=== PATIENT | female | born 1965 | race Caucasian/White ===

== ENCOUNTER → 2022-10-04 | Outpatient (CLI) | payer OTHER ==
[~2022-10-04] MED LIST: ALBU90OI61 INH; AMLO10 PO; AMOX875 PO; BUME1 PO; CITA20 PO; CLON1 PO; DULO30 PO; ELET40TA PO; HYDACE5 PO; HYDMOR4 PO; IBUP800 PO; LORA1 PO; NAPR500 PO; POTCHL20ER PO; PROM25 PO; PROP60 PO; SULTRIDS PO
== END ==
LOC: LAB 15:18 → LAB SHORT 15:18
DX: L03.116 Cellulitis of left lower limb (principal)
CPT/HCPCS: 87070; 87075; 87077; 87186; 87205

== ENCOUNTER 2023-02-28 09:45 | Day surgery (SDC) | payer OTHER ==
[~2023-02-28] VITALS: Ht 154.9 cm; Wt 144.0 kg
[~2023-02-28 09:45] MED LIST changes: +FURO40 PO; +METO25ER PO; +TIZA4 PO
[2023-02-28 10:04] VITALS: BP 183/103
[2023-02-28 12:35] VITALS: BP 177/75
[2023-02-28 12:45] VITALS: BP 151/124
--- NOTE | 2023-02-28 12:47 | NUR ---
pt to recovery from lab. pt sitting up in recliner. pt [id number]. site soft and non-tender per pt. no signs on bleeding noted. pt eating lunch now and given coffee per request.
[2023-02-28 13:00] VITALS: BP 154/70
[2023-02-28 13:15] VITALS: BP 156/71
[2023-02-28 13:30] VITALS: BP 142/66
--- NOTE | 2023-02-28 13:30 | NUR ---
ice pack placed on l chest/shoulder per dr orders.
--- NOTE | 2023-02-28 13:31 | NUR ---
pt finished eating lunch.
--- NOTE | 2023-02-28 14:00 | NUR ---
PT DRESSES SELF WITHOUT DIFF. PT L SIDED CHEST WALL SITE REMAINS CLEAR, C/D/I. NO BLEEDING NOTED. PT VERBALIZES UNDERSTANDING WRITTEN INSTRUCTIONS. DENIES QUESTIONS. VSS. NADN. PT IV DC'D. CATH INTACT. PRESSURE DSG APPLIED. NO BLEEDING NOTED. PT DC TO HOME VIA DAUGHTER BY BRANDT.
== END 2023-02-28 15:12 | disposition home or self-care (01) ==
LOC: MHTC 09:45
DX: Z45.010 Encounter for checking and testing of cardiac pacemaker pulse generator [battery] (principal); I48.0 Paroxysmal atrial fibrillation; I47.29 Other ventricular tachycardia; I11.0 Hypertensive heart disease with heart failure; I50.32 Chronic diastolic (congestive) heart failure; E78.5 Hyperlipidemia, unspecified; G47.33 Obstructive sleep apnea (adult) (pediatric); E66.01 Morbid (severe) obesity due to excess calories; Z79.899 Other long term (current) drug therapy; Z87.891 Personal history of nicotine dependence; Z99.89 Dependence on other enabling machines and devices; Z87.898 Personal history of other specified conditions
CPT/HCPCS: 33228; 99152; 99153; C1785; J0690; J1644; J2250; J3010; J7030; J7040

== ENCOUNTER → 2024-06-23 | Outpatient (CLI) | payer OTHER | LOC: LAB 08:21 → LAB SHORT 08:21 | DX: R10.9 Unspecified abdominal pain (principal) | CPT/HCPCS: 87077; 87086; 87186 ==